=== PATIENT | male | born 1960 | race Hispanic/Latino ===

== ENCOUNTER → 2018-08-11 | Outpatient (CLI) | payer OTHER | END | disposition home or self-care (01) | LOC: SLR 11:00 | PROVIDERS: ATTEND Otolaryngology | DX: G47.33 Obstructive sleep apnea (adult) (pediatric) (principal); R40.0 Somnolence; R06.83 Snoring; E66.9 Obesity, unspecified | CPT/HCPCS: G0399 ==

== ENCOUNTER 2021-02-04 07:57 | Emergency (ER) | payer OTHER ==
[2021-02-04 08:12] VITALS: BP 142/74
--- NOTE | 2021-02-04 08:13 | Emergency Department Report ---
ED General Adult HPI - General Stated complaint: CONFUSION Time Seen by Provider: 02/04/21 08:08 Source: patient, EMS - History of Present Illness Initial comments: Mr. Jiménez is he denies gentleman, 60 years old with history of hypertension. Patient brought to the emergency room via EMS from a local hotel. EMS stated that patient was found sleeping in the lobby of the hotel. Hotel staff called PD and PD called EMS to bring the patient here. Patient is alert, oriented x3 and in no acute distress. Patient stated that he dropped a friend into the hotel yesterday and he was feeling tired and he slept. 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 Patient denied any headache, neck pain, weakness numbness or tingling sensation. He also denied any chest pain or shortness of breath. Patient denied any fever or chills. Patient also denied any alcohol use or any other substance abuse. ED Review of Systems ROS: Stated complaint: CONFUSION Other details as noted in HPI Comment: All other systems reviewed and negative Constitutional: denies: chills, fever Respiratory: denies: cough, shortness of breath, SOB with exertion, SOB at rest Cardiovascular: denies: chest pain, palpitations Gastrointestinal: denies: abdominal pain, nausea, vomiting, diarrhea, constipation, hematemesis, melena, hematochezia Musculoskeletal: denies: back pain Neurological: denies: headache, weakness, numbness, paresthesias, confusion, abnormal gait Psychiatric: denies: depression, auditory hallucinations, visual hallucinations, homicidal thoughts, suicidal thoughts ED Physical Exam - General General appearance: alert, in no apparent distress - Head Head exam: Present: atraumatic, normocephalic, normal inspection - Eye Eye exam: Present: normal appearance, PERRL - ENT ENT exam: Present: normal exam, normal orophraynx, mucous membranes moist - Neck Neck exam: Present: normal inspection, full ROM. Absent: tenderness, meningismus - Respiratory Respiratory exam: Present: normal lung sounds bilaterally - Cardiovascular Cardiovascular Exam: Present: regular rate, normal rhythm, normal heart sounds - GI/Abdominal GI/Abdominal exam: Present: soft, normal bowel sounds. Absent: distended, tenderness, guarding, rebound, rigid, organomegaly, mass, bruit, pulsatile mass, hernia - Extremities Exam Extremities exam: Present: normal inspection, full ROM, normal capillary refill. Absent: tenderness, pedal edema, joint swelling, calf tenderness - Back Exam Back exam: Present: normal inspection, full ROM. Absent: CVA tenderness (R), CVA tenderness (L) - Neurological Exam Neurological exam: Present: alert, oriented X3, CN II-XII intact, normal gait, reflexes normal. Absent: motor sensory deficit - Psychiatric Psychiatric exam: Present: normal mood - Skin Skin exam: Present: warm, intact, normal color ED Medical Decision Making - Medical Decision Making Mr. Jiménez is he denies gentleman, 60 years old with history of hypertension. Patient brought to the emergency room via EMS from a local hotel. EMS stated that patient was found sleeping in the lobby of the hotel. Hotel staff called PD and PD called EMS to bring the patient here. Patient is alert, oriented x3 and in no acute distress. Patient stated that he dropped a friend into the hotel yesterday and he was feeling tired and he slept. 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 Patient denied any headache, neck pain, weakness numbness or tingling sensation. He also denied any chest pain or shortness of breath. Patient denied any fever or chills. Patient vital signs stable. Patient stated that he does not want any work-up. Patient is alert, oriented x3 and able to make sound decision. Patient advised to follow-up with his primary doctor in the next 2 to 3 days and to return to the ER if he develop any new symptoms. Critical care attestation.: If time is entered above; I have spent that time in minutes in the direct care of this critically ill patient, excluding procedure time. ED Disposition Clinical Impression: Fatigue Disposition: HOME / SELF CARE / HOMELESS Is pt being admited?: No Condition: Stable Instructions: Fatigue Referrals: PRIMARY CARE, [Referring] - 3-5 Days
== END 2021-02-04 09:29 | disposition home or self-care (01) ==
LOC: ED 07:57
DX: R53.83 Other fatigue (principal); I10 Essential (primary) hypertension
CPT/HCPCS: 99283